=== PATIENT | male | born 1985 | race Caucasian/White ===

== ENCOUNTER 2021-09-08 16:09 | Emergency (ER) | payer OTHER, SELFPAY ==
--- NOTE | 2021-09-08 16:29 | W.ED.GENAD ---
Discharge Plan Disposition Patient Disposition: HOME Condition: Improving Discharge Details Clinical Impression: UV keratitis Primary Care Provider: Unknown,Unknown ED Provider: Heath Moser Home Meds and New Rx's Prescriptions: No Action No Known Home Meds RF: 0 Discharge Instructions Instructions: Keratitis (ED) Additional Instructions: Please use the erythromycin ointment 4-5 times daily. Apply cool compress to eyes to reduce discomfort. May use Tylenol which she received at 6 PM as well as ibuprofen as needed for pain. We will ask care management to arrange a follow-up for you at [facility] tomorrow. The office number is [phone]. Return to the ER for any acute concerns in the interim. May use may use the provided oxycodone if severe or breakthrough pain. Medical Decision Making 36-year-old male who works at local [employer]. States he finished his 6 shifts per routine and while leaving felt burning discomfort in his eyes that escalated over the next hour or so. He liberally irrigated by standing in the shower at home and now presents for evaluation. No known inciting agents. Patient will note he had new exposure to UV light while cleaning, no new chemical or known. Patient was irrigated with 1 L LR per each eye. Litmus paper shows normal pH. His visual acuity is preserved at approximately 20/80 each eye. Under fluorescein exam there is no evidence of foreign body or corneal abrasion. I feel he most likely has developed a superficial keratitis from the UV light. We will have him follow-up in optometry tomorrow for recheck. We will place him on erythromycin ointment for comfort and protection. HPI General Mode of arrival: ambulatory. Date/Time Provider Initiated Documentation: 09/08/21 16:10. Limitations to Documentation: no limitations. Information obtained by: patient. History of Present Illness 36 year old M presents to the emergency department with the chief complaint of Bilateral burning eye discomfort, described as mild, Quality is described as dull and constant, and is localized to the eyes. Patient reports no radiation. Patient started experiencing this hour(s) and it has been constant. No relieving factors improve symptom(s), No exacerbating factors reported . Patient notes no other symptoms.. Patient did receive the following treatments prior to arrival, none Related Data Home Medications Medication Instructions Recorded Confirmed Unknown [No Known Home Meds] 04/18/20 09/08/21 Allergies Allergy/AdvReac Type Severity Reaction Status Date / Time tree nut AdvReac Mild Uncoded 09/08/21 16:36 Review of Systems Narrative: Denies recent illness. He is otherwise been well. PFSH All Active Problems (Updated 09/08/21 @ 17:55 by Heath Moser MD) UV keratitis (Acute) Lateral epicondylitis of right elbow (Acute) Injection: 04/18/2020 Medical History (Updated 09/08/21 @ 17:55 by Heath Moser MD) Asthma Has not used an inhaler in 3 years. Tendonitis of wrist, left 2014, work related Social History Smoking/Tobacco Use Status: Former Tobacco Use tobacco type: e-cigarettes Quit Date: 08/10/18 Smokeless tobacco user: other Quit status: has quit before Smoking risk assessment performed?: Yes Alcohol Intake: current Alcohol Intake frequency: a few times a week Alcohol type: beer Details: 16 beers a week Household members: significant other current occupation: [employer] worker. [employer] Current gender identity: male What type of physical activity do you participate in: none Seatbelt use: never Do you feel safe at home: Yes Do you feel safe in your relationship?: Yes Additional Social history: states drinking problems in the past but can now curb hi addiction Exam Narrative Exam Narrative: GEN: awake, alert, oriented 3. Pleasant, well groomed, interactive. HEAD: Normocephalic, atraumatic ENT: Mucous membranes moist, oropharynx unremarkable, External ear exam unremarkable EYES: PERRL, EOMI, conjunctiva injected bilaterally. NECK: Full ROM, no TERRANCE, no menigismus CHEST/RESP: Nontender, clear to auscultation bilateral, no wheeze/rhonchi/rales CARDIOVASCULAR: RRR, no murmur, rub salome. 2+ Rad pulse bilateral EXT: Full ROM, no edema, no rash Neuro: Grossly normal neurologic exam, conversant, interactive. Psych: Speech fluent, thoughts congruent, affect normal
[2021-09-08 16:31] VITALS: BP 150/88; PULSE 73; RESP 14; TEMP 36.3; O2SAT 98
[2021-09-08] MEDS: Tetracaine 0.5% 4 ML BTL (16:38)
[2021-09-08] MEDS: Fluorescein STRIPS 100/BOX 1 MG (17:48)
[2021-09-08] MEDS: Erythromycin Ophth Oint 3.5 GM TUBE OU (17:49)
--- NOTE | 2021-09-08 17:56 | NUR.NOTE ---
referral to [facility] for pcp and nusrat for kerratitis
[2021-09-08] MEDS: Acetaminophen 500 MG TAB 1000 MG PO (17:59)
[2021-09-08] MEDS: oxyCODONE 5 MG TAB PO (18:30)
== END 2021-09-08 18:37 | disposition home or self-care (01) ==
PROVIDERS: Emergency Provider Emergency Medicine
DX: H16.133 Photokeratitis, bilateral (principal); W89.8XXA Exposure to other man-made visible and ultraviolet light, initial encounter; Y99.0 Civilian activity done for income or pay
CPT/HCPCS: 99283

== ENCOUNTER 2025-03-23 20:49 | Outpatient (REF) | payer SELFPAY ==
[2025-03-23 20:19] LABS: Abs Immature Grans 0.02 10^3/uL (0.0-0.06); HCT 43.3 % (40.0-50.0); HGB 15.0 g/dL (13.5-17.5); Immature Grans % 0.3 %; MCH 30.9 pg (27.0-33.0); MCHC 34.6 % (32.0-36.0); MCV 89 fL (80-95); MPV 11.7 fL (8.0-11.0); Platelet Count 185 10^3/uL (130-400); RBC 4.86 10^6/uL (4.36-5.78); RDW 12.7 % (11.8-14.1); RDW-SD 41.5 fL; WBC 7.44 10^3/uL (4.4-10.8)
[2025-03-23 20:48] LABS: ALT 23 U/L (16-63); AST 13 U/L (15-37); Albumin 3.7 g/dL (3.4-5.0); Alkaline Phosphatase 52 U/L (46-116); Anion Gap 13.6 mmol/L (3-11); BUN 3 mg/dL (7-18); Bilirubin, Total 0.6 mg/dL (0.2-1.0); CO2 24.4 mmol/L (21.0-32.0); Calcium 8.9 mg/dL (8.5-10.1); Chloride 97 mmol/L (98-107); Estimated GFR 117.98 (mL/min/1.73m2); Glucose 124 mg/dL (74-106); Potassium 3.7 mmol/L (3.5-5.1); Sodium 135 mmol/L (136-145); Total Protein 7.5 g/dL (6.4-8.2)
== END 2025-03-23 20:50 | disposition home or self-care (01) ==
LOC: LBN 20:49
PROVIDERS: Visit Provider Physician Assistant Medical
DX: R19.7 Diarrhea, unspecified (principal)
CPT/HCPCS: 80053; 85025

== ENCOUNTER 2025-03-24 21:35 | Outpatient (REF) | payer SELFPAY ==
[2025-03-24 13:48] LABS: EPI 027-NAP1-B1 PRESUMPTIVE NEGATIVE
[2025-03-25 11:21] LABS: Shiga Toxin PCR Negative (Negative); Shigella/Enteroinvasive Ecoli Negative (Negative)
[2025-03-27 14:50] LABS: Campylobacter PCR Positive (Negative)
== END 2025-03-24 21:36 | disposition home or self-care (01) ==
LOC: LBN 21:35
PROVIDERS: Visit Provider Physician Assistant Medical
DX: R19.7 Diarrhea, unspecified (principal)
CPT/HCPCS: 87015; 87269; 87272; 87505